=== PATIENT | female | born 1940 | race Two or more races ===

== ENCOUNTER → 2019-11-27 | Day surgery (SDC) | payer MEDICARE ==
[2019-11-27] VITALS (9 sets, daily range): BP systolic 122–130; BP diastolic 56–74
[~2019-11-27] VITALS: Ht 152.4 cm; Wt 39.5 kg
[~2019-11-27] MED LIST: LR 1000ml ONE; XELODA150 MG ORAL; fentaNYL 100 mcg/2 mL IV ONE; vitamin D PO
--- NOTE | 2019-11-27 10:31 | Anethesia Preoperative Eval ---
Anesthesia Pre-op PMH/ROS General Date of Evaluation: Nov 27, 2019 Time of Evaluation: 10:29 Anesthesiologist: Yonatan ASA Score: ASA 4 Mallampati Score Class I : Soft palate, uvula, fauces, pillars visible Class II: Soft palate, uvula, fauces visible Class III: Soft palate, base of uvula visible Class IV: Only hard plate visible Mallampati Classification: Class II Surgeon: Brodie Diagnosis: Dysphagia Surgical Procedure: EGD Anesthesia History: none Family History: no anesthesia problems Allergies: Coded Allergies: MANNITOL (Verified Allergy, Severe, PAIN, 11/27/19) WATER FOR INJECTION,STERILE (Verified Allergy, Severe, PAIN, 11/27/19) ZOLEDRONIC ACID (Verified Allergy, Severe, PAIN, 11/27/19) Medications: see eMAR Patient NPO?: Yes Past Medical History Cardiovascular: Denies: HTN, CAD, ND, valve dz, arrhythmia, other Pulmonary: Denies: asthma, COPD, TG, other Gastrointestinal/Genitourinary: Reports: GERD, other - severly malnourished; Denies: CRI, ESRD Neurologic/Psychiatric: Reports: depression/anxiety; Denies: dementia, CVA, TIA, other Endocrine: Reports: hypothyroidism; Denies: DM, steroids, other HEENT: Denies: cataract (L), cataract (R), glaucoma, [place] (L[place] (R), other Hematology/Immune: Reports: anemia - mild; Denies: DVT, bleeding disorder, other Musculoskeletal/Integumentary: Reports: OA; Denies: RA, DJD, DDD, edema, other Other: other - malnourished, significant weight loss PMH Narrative: as above PSxH Narrative: Hysterectomy, mastectomy Anesthesia Pre-op Phys. Exam Physician Exam Last Vital Signs Date Time Temp Pulse Resp B/P (MAP) Pulse Ox O2 Delivery O2 Flow Rate FiO2 11/27/19 10:02 Room Air 11/27/19 10:01 97.6 71 18 130/65 98 Constitutional: NAD Neurologic: CN 2-12 intact Cardiovascular: RRR, no M/R/G Respiratory: CTA Gastrointestinal: S/NT/ND Airway Exam Mallampati Score: Class II MO: limited Neck: stiff ROM: limited Teeth: missing Dentures: no upper, no lower Anesthesia Pre-op A/P Labs see chart Risk Assessment & Plan Assessment: ASA 3 Plan: Thee Noe MD Nov 27, 2019 10:31
--- NOTE | 2019-11-27 10:40 | Short Stay Surgery H&P ---
History of Present Illness History of Present Illness Chief Complaint see H&P HPI Krystle Berrios is a 79 year old female who was admitted on for Dysphagia Patient History Allergies: Coded Allergies: MANNITOL (Verified Allergy, Severe, PAIN, 11/27/19) WATER FOR INJECTION,STERILE (Verified Allergy, Severe, PAIN, 11/27/19) ZOLEDRONIC ACID (Verified Allergy, Severe, PAIN, 11/27/19) Medication History Scheduled Capecitabine (Xeloda), 500 MG ORAL BID, (Reported) [vitamin D], 10,000 UNITS PO TWICE A WEEK , (Reported) Physical Exam Vital Signs Last Vital Signs Date Time Temp Pulse Resp B/P (MAP) Pulse Ox O2 Delivery O2 Flow Rate FiO2 11/27/19 10:02 Room Air 11/27/19 10:01 97.6 71 18 130/65 98 Plan Attestation Are the patient's medical conditions optimized for surgery? Javi Shahid MD Nov 27, 2019 10:40
--- NOTE | 2019-11-27 10:41 | Pre-Procedure Note/Attestation ---
Pre-Procedure Note/Attestation Complete Prior to Procedure Planned Procedure: not applicable Procedure Narrative: EGD Bx Dilation Indications for Procedure Pre-Operative Diagnosis: dysphagia Attestation I attest that I discussed the nature of the procedure; its benefits; risks and complications; and alternatives (and the risks and benefits of such alternatives ), prior to the procedure, with the patient (or the patient's legal sales representative health insurance). I attest that, if there was a reasonable possibility of needing a blood transfusion, the patient (or the patient's legal sales representative health insurance) was given the [facility] standardized written summary, pursuant to the Nehemiah Jung Blood Safety Act ([place] Health and Safety Code # 1645, as amended). I attest that I re-evaluated the patient just prior to the surgery and that there has been no change in the patient's H&P, except as documented below: Javi Shahid MD Nov 27, 2019 10:41
--- NOTE | 2019-11-27 11:38 | Endoscopy Procedure Note ---
Endoscopy Procedure Note General Indication for Procedure: dysphagia Procedures Performed: EGD Operative Findings/Diagnosis: mild george, watermellon gastritis, erosive bulb duodenitis, gastric polyp Specimen: yes Pt Tolerated Procedure Well: Yes Estimated Blood Loss: none Anesthesia Anesthesiologist: Garrison Anesthesia: MAC Medications Medication Given: see anesthesia record Inserted Devices Implant(s) used?: No GI Core Measures 50 yrs or older w/o bx or poly: Not Applicable 10yrs. F/U recommended: Not Applicable Javi Shahid MD Nov 27, 2019 11:38
--- NOTE | 2019-11-27 11:38 | Brief Operative Note ---
Immediate Post Operative Note Operative Note Chief Complaint: dysphagia Pre-op Diagnosis: dysphagia Procedure: esophagogastroduodenoscopy bx Post-op Diagnosis: mild george, [place] gastritis, erosive bulb duodenitis, gastric polyp Surgeon: mike Anesthesiologist: Garrison Anesthesia: MAC Specimen: yes Complications: none Condition: stable Fluids: per anesthesia Implant(s) used?: No Javi Shahid MD Nov 27, 2019 11:38
--- NOTE | 2019-11-27 11:42 | Immediate Post-Op Evaluation ---
Immediate Post-Op Evalulation Immediate Post-Op Evalulation Procedure: EGD with Bx Date of Evaluation: Nov 27, 2019 Time of Evaluation: 11:41 IV Fluids: 700 Blood Products: none Estimated Blood Loss: min Urinary Output: none Blood Pressure Systolic: 128 Blood Pressure Diastolic: 67 Pulse Rate: 68 Respiratory Rate: 20 O2 Sat by Pulse Oximetry: 99 Temperature (Fahrenheit): 97.8 Pain Score (1-10): 1 Nausea: No Vomiting: No Complications none Patient Status: awake, patent, none Hydration Status: adequate Thee Tam MD Nov 27, 2019 11:42
--- NOTE | 2019-11-27 12:57 | 48 Hour Post Anesthesia Eval ---
Post Anesthesia Evaluation Procedure: EGD with Bx Date of Evaluation: Nov 27, 2019 Time of Evaluation: 12:56 Blood Pressure Systolic: 126 0: 74 Pulse Rate: 68 Respiratory Rate: 18 Temperature (Fahrenheit): 97.6 O2 Sat by Pulse Oximetry: 98 Airway: patent Nausea: No Vomiting: No Pain Intensity: 1 Hydration Status: adequate Cardiopulmonary Status: stable Mental Status/LOC: patient returned to baseline Follow-up Care/Observations: n/a Post-Anesthesia Complications: none Follow-up care needed: ready to discharge Thee Tam MD Nov 27, 2019 12:57
--- NOTE | 2019-11-27 13:45 | Operative Note - Dictated ---
DATE OF OPERATION: 11/27/2019 GASTROENTEROLOGY PROCEDURE REPORT PROCEDURE: Upper gastrointestinal endoscopy with biopsy. SURGEON: Javi Shahid MD. ANESTHESIOLOGIST: Thee Tam MD. PRE-ENDOSCOPIC DIAGNOSIS: Dysphagia. POST-ENDOSCOPIC DIAGNOSES: 1. 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 2. No evidence of esophageal wall thickening or abnormality in the lower esophagus. 3. Erythematous gastritis in the stomach with bits of blood in a watermelon pattern. 4. Erosive duodenitis in the duodenal bulb. 5. Two diminutive gastric polyps, which were biopsied. DESCRIPTION OF PROCEDURE: The procedure, its risks, indications, alternatives, and possible complications including but not limited to bleeding, infection, perforation and anesthesia complications were explained to the patient and an informed consent was obtained. The patient was then sedated in the left lateral decubitus position and a diagnostic upper endoscope was introduced through oropharynx and advanced to the duodenum without difficulty. The endoscope was then gradually withdrawn and mucosa examined carefully. Examination of the upper gastrointestinal mucosa revealed the scattered bits of white material in the upper esophagus, which resembled mild Evita esophageal colonization. This will be washed away with water. The lower esophagus did not show any abnormality thickening seen on imaging study. Random biopsies of the lower esophagus and mid esophagus were sent to pathology for review. The stomach showed erythematous gastritis in a watermelon pattern in the antrum with some small bits of blood . Biopsies of the antrum were sent to pathology for review. In the mid body of the stomach, there are two polyps, which were diminutive and removed with the biopsy forceps. The duodenum showed some mild erosive changes in the bulb and this was biopsied as well. There was no bleeding or other abnormalities identified. The endoscope was removed. The patient was sent to recovery in good condition. COMPLICATIONS: None. RECOMMENDATIONS: 1. Follow up biopsy results. 2. Check and treat Helicobacter pylori if positive. 3. A brief course of nystatin p.r.n. 4. Outpatient followup. Javi Shahid M.D. DR: MELANI JOB#: [id number] CC:
== END | disposition home or self-care (01) ==
LOC: GAS 09:38
DX: R13.10 Dysphagia, unspecified (principal); K29.80 Duodenitis without bleeding; K31.7 Polyp of stomach and duodenum; K29.70 Gastritis, unspecified, without bleeding; K31.9 Disease of stomach and duodenum, unspecified; Z88.8 Allergy status to other drugs, medicaments and biological substances
CPT/HCPCS: 43239; 94003; J2704; J3010; J7120; U0002; 94150